=== PATIENT | female | born 1990 | race Hispanic/Latino ===

== ENCOUNTER 2019-03-31 14:30 | Emergency (ER) | payer OTHER ==
[2019-03-31 15:00] LABS: APPEARANCE,URINE Cloudy (CLEAR); BILIRUBIN,URINE Negative (NEGATIVE); COLOR,URINE Dark Yellow (YELLOW); GLUCOSE, URINE (UA) Negative (NEGATIVE); KETONES,URINE Negative (NEGATIVE); LEUKOCYTE ESTERASE ,URINE Negative (NEGATIVE); NITRATE,URINE Negative (NEGATIVE); OCCULT BLOOD,URINE Negative (NEGATIVE); PROTEIN,URINE Negative (NEGATIVE)
[2019-03-31 15:03] LABS: HCG,QUAL RESULT NEGATIVE (NEGATIVE)
[2019-03-31 15:18] LABS: BACTERIA,URINE Few /HPF (None Seen); RBC,URINE None Seen /HPF (0-1)
[2019-03-31 15:19] LABS: AMORPHOUS SEDIMENT,UR Few /LPF (None Seen); MUCUS,URINE Few LPF (None Seen)
== END 2019-03-31 15:04 | disposition home or self-care (01) ==
LOC: EDH 14:30
DX: F41.1 Generalized anxiety disorder (principal); Z88.0 Allergy status to penicillin; Z88.6 Allergy status to analgesic agent
CPT/HCPCS: 81001; 81025

== ENCOUNTER 2020-08-20 00:25 | Inpatient (IN) | payer OTHER ==
[~2020-08-20] VITALS: Ht 165.1 cm; Wt 85.3 kg
[2020-08-20 00:58] LABS: APPEARANCE,URINE Cloudy (CLEAR); BILIRUBIN,URINE Negative (NEGATIVE); COLOR,URINE Yellow (YELLOW); GLUCOSE, URINE (UA) Negative (NEGATIVE); KETONES,URINE Negative (NEGATIVE); LEUKOCYTE ESTERASE ,URINE Moderate (NEGATIVE); NITRATE,URINE Negative (NEGATIVE); OCCULT BLOOD,URINE Negative (NEGATIVE); PROTEIN,URINE Trace mg/dL (NEGATIVE)
[2020-08-20 01:05] LABS: AMPHET/METH SCREEN,URINE NEGATIVE (NEGATIVE); BARBITURATE SCREEN, URINE NEGATIVE (NEGATIVE); BENZODIAZEPINES SCREEN,URINE NEGATIVE (NEGATIVE); CANNABINOID SCREEN,URINE NEGATIVE (NEGATIVE); COCAINE SCREEN,URINE NEGATIVE (NEGATIVE); OPIATE SCREEN,URINE NEGATIVE (NEGATIVE); PHENCYCLIDINE SCREEN,URINE NEGATIVE (NEGATIVE)
[2020-08-20 01:06] LABS: BACTERIA,URINE Few /HPF (None Seen); MUCUS,URINE Many LPF (None Seen); RBC,URINE None Seen /HPF (0-1); SQUAMOUS EPITHELIAL CELL,UR Moderate /HPF (0-2)
[2020-08-20] MEDS ORDERED: LACTATED RINGERS 500 ML 500 ML IV PRN (01:45)
[2020-08-20] MEDS ORDERED: LACTATED RINGERS 1000ML 1,000 ML IV PRN (01:45)
[2020-08-20] MEDS ORDERED: PROMETHAZINE HCL 25 MG/ML 1ML AMPULE IM PRN (01:45)
[2020-08-20] MEDS ORDERED: EPHEDRINE SULFATE 50 MG/ML AMPULE IVP PRN (01:45)
[2020-08-20] MEDS ORDERED: MEPERIDINE-PF 50 MG/ML SYG IVP PRN (01:45)
[2020-08-20] MEDS ORDERED: NALOXONE HCL 0.4 MG/1 ML ML IV PRN (01:45)
[2020-08-20 02:03] LABS: HEMATOCRIT 27.7 % (36-48); MEAN CORPUSCULAR HEMOGLOBIN 31.2 pg (27.0-33.0); MEAN CORPUSCULAR HGB CONC 33.2 g/dL (32.0-36.0); MEAN CORPUSCULAR VOLUME 93.9 fL (79-99); RED BLOOD CELL COUNT(AUTO) 2.95 MIL/uL (4.00-5.50); RED CELL DISTRIBUTION WIDTH 14.3 % (11.0-15.5); WHITE BLOOD COUNT (AUTO) 8.6 K/uL (4.8-10.8)
[2020-08-20] MEDS: CLINDAMYCIN 600 MG/D5% WATER 50 ML IV SCH ×2 (02:56→08:45)
[2020-08-20] MEDS ORDERED: OXYTOCIN 10 USP UNITS/ML 20 UNIT in LACTATED RINGERS 1000ML 1,000 ML IV SCH (06:15)
[2020-08-20 06:27] VITALS: BP 125/71
[2020-08-20] MEDS ORDERED: OXYTOCIN-LR 20 UNITS/1000 ML 1,000 ML IV ONE ×2 (06:27→12:07)
[2020-08-20 07:52] LABS: RAPID PLASMA REAGIN NONREACTIVE (NONREACTIVE)
[2020-08-20] MEDS ORDERED: ACETAMINOPHEN-CODEINE 300/30MG TAB PO PRN (12:30)
[2020-08-20] MEDS ORDERED: BENZOCAINE/LANOLIN/ALOE VERA 60 ML AEROSOL TP PRN (12:30)
[2020-08-20] MEDS ORDERED: WITCH HAZEL 1 PAD TP PRN (12:30)
[2020-08-20] MEDS ORDERED: LANOLIN 30GM OINTMENT TP PRN (12:30)
[2020-08-20] MEDS ORDERED: OXYTOCIN 10 USP UNITS/ML ONE (12:47)
[2020-08-20] MEDS ORDERED: METHYLERGONOVINE MALEATE 0.2 MG/1 ML ML ONE (12:47)
[2020-08-20] MEDS: ACETAMINOPHEN 325 MG TAB PO PRN ×2 (13:21→20:56)
[2020-08-20 13:47] VITALS: BP 136/78
[2020-08-20] MEDS ORDERED: METHYLERGONOVINE MALEATE 0.2 MG/1 ML ML IM SCH (14:00)
[2020-08-20] MEDS ORDERED: OXYTOCIN 10 USP UNITS/ML IV SCH (14:00)
--- NOTE | 2020-08-20 15:00 | NUR ---
SW NOTE SW visited pt., family member at bedside. Pt. requested SW revisit tomorrow morning.
[2020-08-20 15:40] VITALS: BP 125/94
[2020-08-20 16:41] VITALS: BP 134/78
[2020-08-20 20:01] VITALS: BP 131/79
[2020-08-20] MEDS: DOCUSATE SODIUM 100 MG CAP PO SCH (20:53)
[2020-08-20 23:30] VITALS: BP 116/73
[2020-08-21 03:24] VITALS: BP 127/77
[2020-08-21] MEDS: ACETAMINOPHEN 325 MG TAB PO PRN ×2 (03:34→09:11)
[2020-08-21] MEDS ORDERED: MEASLES/MUMPS/RUBELLA VACCINE, LIVE 0.5 ML/VIAL SQ ONE (05:00)
[2020-08-21] MEDS ORDERED: DIPH,PERTUSS(ACELL),TET VAC/PF 0.5 ML VIAL IM ONE (05:00)
[2020-08-21 07:17] VITALS: BP 126/76
[2020-08-21 08:08] LABS: HEMATOCRIT 24.1 % (36-48); MEAN CORPUSCULAR HEMOGLOBIN 30.5 pg (27.0-33.0); MEAN CORPUSCULAR HGB CONC 31.5 g/dL (32.0-36.0); MEAN CORPUSCULAR VOLUME 96.8 fL (79-99); RED BLOOD CELL COUNT(AUTO) 2.49 MIL/uL (4.00-5.50); RED CELL DISTRIBUTION WIDTH 14.3 % (11.0-15.5); WHITE BLOOD COUNT (AUTO) 6.5 K/uL (4.8-10.8)
[2020-08-21 08:13] LABS: HEPATITIS Bs ANTIGEN SCREEN P Negative (Negative)
--- NOTE | 2020-08-21 09:00 | NUR ---
HARRY NOTE HARRY met with pt. who is awake, alert, oriented and cooperative. Pt. reports that this is her third /delivery; other children are 6y,3y and currently being cared for by her mother. Pt. is single, not employed outside the home and resides with her parents whom she reports as a strong support system. Pt. reports that she is no longer involved with FOB who is not the father to her two older children. Pt. admits to having used etoh and tobacco two months ago, but reports that she did not know that she was , also being the reason for lack of PNC. Pt. counseled on etoh, tobacco use especially around the children, pt. verbalized an understanding and reported that she has not done so. Pt. denied any use of illicit substances. Pt. reports a remote history of depression, anxiety and cutting at the age of 15y, stating she was treated and denies any episodes since. Pt. denies any current thoughts of harm to self or others, denies any history of suicide attempts. Pt. denies any history of domestic violence. Pt. denied any history of PPD with prior pregnancies and verbalized an awareness, knowledge and understanding of symptoms and when it is necessary to seek medical attention. Pt. will utilize [facility] for [employer] and herself; [facility] assisting this admission. Pt. reports a strong support system among her parents and family, stating that they are always willing to assist when needed. Carseat and essential baby items reportedly in place and all utilities connected in the home. Family will provide transportation home at d/c. Pt. provided with information on free counseling through [facility] if needed; pt. verbalized an understanding. Pt. verbalized no concerns or SS needs. Pt. and to be discharged home when medically cleared. Addendum: 08/21/20 at 1533 by RENEA NEWMAN Amended: Links added.
[2020-08-21] MEDS: DOCUSATE SODIUM 100 MG CAP PO SCH (09:09)
--- NOTE | 2020-08-21 09:26 | NUR ---
physician fariha - Dr. Hsu at bedside, no concerns or questions from pt. informed pt that she will be discharged today Addendum: 08/21/20 at 0937 by EDITH BISHOP RN Amended: Links added.
[2020-08-21 11:13] VITALS: BP 138/81
--- NOTE | 2020-08-21 11:20 | NUR ---
pt is discharged, verbal and written discharge instructions given, pls refer to [facility]. informed of the follow up appointment, prescription given. informed to call the doctor for further concerns. pt voiced understanding to all things discussed. baby will not be discharged. pt is waiting for her ride Addendum: 08/21/20 at 1451 by EDITH BISHOP RN Amended: Links added.
--- NOTE | 2020-08-21 14:00 | NUR ---
pt is dismissed in stable condition, brought to [email or web address] car via wheelchair by Tanesha- gopal Addendum: 08/21/20 at 1452 by EDITH BISHOP RN Amended: Links added.
== END 2020-08-21 14:00 | disposition home or self-care (01) | DRG 807 ==
LOC: EDH 00:25 → LDH 00:26 → OBSVTOIN 01:45 → WSH 13:45
PROVIDERS: ADMIT Obstetrics & Gynecology; ATTEND Obstetrics & Gynecology
PROC: 10E0XZZ Delivery of Products of Conception, External Approach (ICD-10-PCS; principal; 2020-08-20)
PROC: 0HQ9XZZ Repair Perineum Skin, External Approach (ICD-10-PCS; 2020-08-20)
PROC: 3E0R3BZ Introduction of Anesthetic Agent into Spinal Canal, Percutaneous Approach (ICD-10-PCS; 2020-08-20)
PROC: 00HU33Z Insertion of Infusion Device into Spinal Canal, Percutaneous Approach (ICD-10-PCS; 2020-08-20)
PROC: 10907ZC Drainage of Amniotic Fluid, Therapeutic from Products of Conception, Via Natural or Artificial Opening (ICD-10-PCS; 2020-08-20)
PROC: 3E0234Z Introduction of Serum, Toxoid and Vaccine into Muscle, Percutaneous Approach (ICD-10-PCS; 2020-08-21)
PROC: 3E0134Z Introduction of Serum, Toxoid and Vaccine into Subcutaneous Tissue, Percutaneous Approach (ICD-10-PCS; 2020-08-21)
DX: O70.0 First degree perineal laceration during delivery (principal); Z37.0 Single live birth; Z3A.36 36 weeks gestation of pregnancy; Z23 Encounter for immunization; Z88.0 Allergy status to penicillin; Z88.8 Allergy status to other drugs, medicaments and biological substances
CPT/HCPCS: 36415; 76805; 80305; 81001; 85027; 86592; 86701; 86850; 86900; 86901; 87088; 87340; 87390; 90707; 90715; A4314; A4351; G0378; J2210; J2590; J3490; J7120

== ENCOUNTER 2020-08-28 00:11 | Inpatient (IN) | payer OTHER ==
[~2020-08-28] VITALS: Ht 165.1 cm; Wt 82.5 kg
[2020-08-28] MEDS ORDERED: MORPHINE SULFATE 4 MG/1ML SYG ONE (01:31)
[2020-08-28] MEDS ORDERED: ONDANSETRON HCL 4 MG/2 ML VIAL ONE (01:31)
[2020-08-28] MEDS ORDERED: MORPHINE SULFATE 2 MG/ML 1ML SYG ONE (01:32)
[2020-08-28] MEDS ORDERED: BUTALB/ACETAMINOPHEN/CAFFEINE 1 EACH TABLET PO ONE (01:32)
[2020-08-28] MEDS ORDERED: SODIUM CHLORIDE 0.9% 1000ML 1,000 ML IV ONE (01:33)
[2020-08-28 01:57] LABS: BASOPHILS % (AUTO) 0.4 % (0.0-5.0); EOSINOPHILS % (AUTO) 2.8 % (0.0-8.0); HEMATOCRIT 25.8 % (36-48); LYMPHOCYTES % (AUTO) 22.1 % (21.0-51.0); MEAN CORPUSCULAR HEMOGLOBIN 31.4 pg (27.0-33.0); MEAN CORPUSCULAR HGB CONC 33.3 g/dL (32.0-36.0); MEAN CORPUSCULAR VOLUME 94.2 fL (79-99); PLATELET COUNT (AUTO) 285 K/uL (130-400); RED BLOOD CELL COUNT(AUTO) 2.74 MIL/uL (4.00-5.50); RED CELL DISTRIBUTION WIDTH 13.7 % (11.0-15.5); WHITE BLOOD COUNT (AUTO) 4.7 K/uL (4.8-10.8)
[2020-08-28 02:04] LABS: CREATININE 0.4 mg/dL (0.5-1.5); POTASSIUM 3.9 mmol/L (3.5-5.1)
[2020-08-28 02:09] LABS: ALBUMIN 2.8 g/dL (3.5-5.0); BILIRUBIN,TOTAL 0.1 mg/dL (0.2-1.0); TOTAL PROTEIN, SERUM 6.8 g/dL (6.0-8.3)
[2020-08-28] MEDS ORDERED: HYDROMORPHONE 1 MG/1 ML AMP ONE (05:05)
[2020-08-28] MEDS ORDERED: SODIUM CHLORIDE 0.9% 50 ML IV ONE (05:11)
--- NOTE | 2020-08-28 07:30 | NUR ---
DR ARISTIDES IRVING CAME TO SEE PT AT BEDSIDE ORDERED MRV R/O THROMBOSIS AND CT BRAIN W/O CONTRAST.
[2020-08-28 07:56] VITALS: BP 133/79
--- NOTE | 2020-08-28 08:00 | NUR ---
SARA RUIZ NP CAME TO SEE PT AT BEDSIDE
[2020-08-28] MEDS ORDERED: ACET325C6 PO (08:21)
[2020-08-28] MEDS ORDERED: ONDANSETRON HCL 4 MG/2 ML VIAL IVP PRN (08:45)
[2020-08-28] MEDS ORDERED: ACETAMINOPHEN-CODEINE 300/30MG TAB PO PRN (08:45)
[2020-08-28] MEDS ORDERED: ACETAMINOPHEN 325 MG TAB PO PRN ×2 (08:45)
[2020-08-28] MEDS: FAMOTIDINE 20MG TAB 20 MG TAB PO SCH ×2 (09:00→20:47)
[2020-08-28 11:33] VITALS: BP 135/82
[2020-08-28] MEDS: SODIUM CHLORIDE 0.9% 1000ML 1,000 ML IV SCH ×2 (12:50→17:49)
[2020-08-28 15:53] VITALS: BP 143/86
--- NOTE | 2020-08-28 15:57 | NUR ---
DCP CM met with pt discussed dc plans. Pt is independent prior to admission, lives at home with parents. Denies any equipments/services. Feels safe to go back home, still drives, parents able to assist with transportation and needs as necessary. DC plan to home once stable. CM to continue to follow up.
[2020-08-28] MEDS ORDERED: WARFARIN SODIUM 5 MG TAB PO SCH (17:00)
--- NOTE | 2020-08-28 17:40 | NUR ---
DR. DAILEY OB PER DR. DAILEY, HE WILL COME TO SEE PATIENT SOME TIME THIS EVENING.
[2020-08-28 19:43] VITALS: BP 149/90
[2020-08-28] MEDS: ENOXAPARIN SODIUM 80 MG/0.8 ML SQ SCH (20:51)
[2020-08-28 23:53] VITALS: BP 159/93
[2020-08-29 04:20] VITALS: BP 147/81
[2020-08-29 05:57] LABS: BASOPHILS % (AUTO) 0.5 % (0.0-5.0); EOSINOPHILS % (AUTO) 4.1 % (0.0-8.0); HEMATOCRIT 28.1 % (36-48); LYMPHOCYTES % (AUTO) 25.3 % (21.0-51.0); MEAN CORPUSCULAR HEMOGLOBIN 30.4 pg (27.0-33.0); MEAN CORPUSCULAR HGB CONC 32.4 g/dL (32.0-36.0); MONOCYTES % (AUTO) 8.9 % (3.0-13.0); NEUTROPHILS % (AUTO) 60.2 % (40.0-77.0); PLATELET COUNT (AUTO) 262 K/uL (130-400); RED BLOOD CELL COUNT(AUTO) 2.99 MIL/uL (4.00-5.50); RED CELL DISTRIBUTION WIDTH 13.2 % (11.0-15.5); WHITE BLOOD COUNT (AUTO) 5.9 K/uL (4.8-10.8)
[2020-08-29 06:10] LABS: CREATININE 0.6 mg/dL (0.5-1.5); POTASSIUM 4.1 mmol/L (3.5-5.1)
[2020-08-29 06:16] LABS: INR 0.91 (0.85-1.15); PARTIAL THROMBOPLASTIN TIME 28.2 SEC (26.3-35.5); PROTHROMBIN TIME 9.9 SEC (9.6-11.6)
[2020-08-29 08:00] VITALS: BP 147/84
[2020-08-29] MEDS ORDERED: IRON SUCROSE COMPLEX 100 MG in SODIUM CHLORIDE 0.9% 50 ML IV SCH (09:00)
[2020-08-29] MEDS: FAMOTIDINE 20MG TAB 20 MG TAB PO SCH (09:05)
[2020-08-29] MEDS: ENOXAPARIN SODIUM 80 MG/0.8 ML SQ SCH (09:06)
[2020-08-29] MEDS ORDERED: COMPOUND IV MISC 1 EACH IVSOLN MISC PRN (09:15)
[2020-08-29] MEDS: SODIUM CHLORIDE 0.9% 1000ML 1,000 ML IV SCH (10:14)
[2020-08-29 11:00] VITALS: BP 148/95
[2020-08-29 16:00] VITALS: BP 166/97
--- NOTE | 2020-08-29 18:47 | NUR ---
PATIENT DISCHARGE PATIENT DISCHARGE, IV DISCONTINUED, CATHLON INTACT, BLEEDING CONTROLLED, PATIENT TOLERATED WITHOUT INCIDENT. DISCUSSED WITH PATIENT THE NEED FOR HER TO CALL AND SCHEDULE FOLLOW UP APPOINTMENTS DUE TO OFFICES BEING CLOSED, PROVIDED PHONE NUMBERS TO CALL. DISCUSSED WITH PATIENT NEW MEDICATIONS, PATIENT STATED SHE UNDERSTOOD AND HAD NO ADDITIONAL QUESTIONS.
== END 2020-08-29 19:10 | disposition home or self-care (01) | DRG 776 ==
LOC: EDH 00:11 → OBSVTOIN 00:12 → EDHIP 00:12 → 3CH 07:41
PROVIDERS: ADMIT Family Medicine; ATTEND Family Medicine
DX: O87.0 Superficial thrombophlebitis in the puerperium (principal); O89.4 Spinal and epidural anesthesia-induced headache during the puerperium; Z20.828 Contact with and (suspected) exposure to other viral communicable diseases; O90.81 Anemia of the puerperium; D64.9 Anemia, unspecified; Z88.0 Allergy status to penicillin; Z88.8 Allergy status to other drugs, medicaments and biological substances; Z83.3 Family history of diabetes mellitus; Z82.49 Family history of ischemic heart disease and other diseases of the circulatory system
CPT/HCPCS: 36415; 70450; 70544; 70551; 80048; 80053; 85025; 85610; 85730; 87426; G0378; J1170; J1650; J1756; J2270; J2405; J7030; U0003

== ENCOUNTER 2020-09-07 15:57 | Inpatient (IN) | payer MEDICAID ==
[~2020-09-07] VITALS: Ht 165.1 cm; Wt 84.3 kg
[~2020-09-07 15:57] MED LIST: ACET325C6 PO
[2020-09-07 16:22] LABS: BASOPHILS % (AUTO) 0.9 % (0.0-5.0); EOSINOPHILS % (AUTO) 2.5 % (0.0-8.0); HEMATOCRIT 35.1 % (36-48); LYMPHOCYTES % (AUTO) 20.7 % (21.0-51.0); MEAN CORPUSCULAR HGB CONC 32.8 g/dL (32.0-36.0); MEAN CORPUSCULAR VOLUME 91.6 fL (79-99); MONOCYTES % (AUTO) 4.4 % (3.0-13.0); PLATELET COUNT (AUTO) 367 K/uL (130-400); RED BLOOD CELL COUNT(AUTO) 3.83 MIL/uL (4.00-5.50); RED CELL DISTRIBUTION WIDTH 13.4 % (11.0-15.5); WHITE BLOOD COUNT (AUTO) 8.9 K/uL (4.8-10.8)
[2020-09-07 16:37] LABS: INR 0.94 (0.85-1.15); PROTHROMBIN TIME 10.2 SEC (9.6-11.6)
[2020-09-07 16:41] LABS: ALBUMIN 3.8 g/dL (3.5-5.0); BILIRUBIN,TOTAL 0.4 mg/dL (0.2-1.0); CREATININE 0.8 mg/dL (0.5-1.5); POTASSIUM 4.1 mmol/L (3.5-5.1); TOTAL PROTEIN, SERUM 7.9 g/dL (6.0-8.3)
[2020-09-07 17:02] LABS: APPEARANCE,URINE Clear (CLEAR); BILIRUBIN,URINE Negative (NEGATIVE); COLOR,URINE Dark Yellow (YELLOW); GLUCOSE, URINE (UA) Negative (NEGATIVE); KETONES,URINE Negative (NEGATIVE); LEUKOCYTE ESTERASE ,URINE Negative (NEGATIVE); NITRATE,URINE Negative (NEGATIVE); OCCULT BLOOD,URINE Negative (NEGATIVE); PROTEIN,URINE Trace mg/dL (NEGATIVE); UROBILINOGEN,URINE 0.2 mg/dL (0.2-1.0)
[2020-09-07 17:04] LABS: HCG,QUAL RESULT NEGATIVE (NEGATIVE)
[2020-09-07 17:17] LABS: BACTERIA,URINE Few /HPF (None Seen); MUCUS,URINE Moderate LPF (None Seen); SQUAMOUS EPITHELIAL CELL,UR Few /HPF (0-2)
[2020-09-07 17:50] LABS: HEMATOCRIT 30.9 % (36-48)
[2020-09-07] MEDS ORDERED: ACETAMINOPHEN 325 MG TAB PO PRN (19:30)
[2020-09-07] MEDS: SODIUM CHLORIDE 0.9% 1000ML 1,000 ML IV SCH (19:30)
[2020-09-07] MEDS ORDERED: ONDANSETRON HCL 4 MG/2 ML VIAL IV PRN (19:30)
[2020-09-07] MEDS ORDERED: LACTULOSE 20 GM/30 ML UDCUP PO PRN (19:30)
[2020-09-07] MEDS: FAMOTIDINE 20MG TAB 20 MG TAB PO SCH (21:00)
[2020-09-07] MEDS ORDERED: FAMOTIDINE 20MG TAB 20 MG TAB ONE (22:42)
[2020-09-07 23:38] VITALS: BP 162/78
[2020-09-07] MEDS: ACETAMINOPHEN 325 MG TAB PO PRN (23:39)
[2020-09-08] VITALS (7 sets, daily range): BP systolic 138–169; BP diastolic 76–96
[2020-09-08] MEDS ORDERED: SODIUM CHLORIDE 0.9% 250 ML IV ONE (01:21)
[2020-09-08 01:24] LABS: HEMATOCRIT 33.9 % (36-48)
[2020-09-08] MEDS ORDERED: DiphenhydrAMINE HCL 50 MG/ML VIAL IV SCH (02:45)
[2020-09-08] MEDS ORDERED: DiphenhydrAMINE HCL 50 MG/ML VIAL ONE (02:46)
[2020-09-08] MEDS: SODIUM CHLORIDE 0.9% 1000ML 1,000 ML IV SCH ×2 (02:47→14:21)
[2020-09-08 05:52] LABS: HEMATOCRIT 32.8 % (36-48)
[2020-09-08] MEDS: FAMOTIDINE 20MG TAB 20 MG TAB PO SCH ×2 (08:39→21:59)
[2020-09-08] MEDS ORDERED: ONDANSETRON HCL 4 MG/2 ML VIAL IVP PRN (10:15)
[2020-09-08 11:09] LABS: HEMATOCRIT 33.3 % (36-48)
[2020-09-08] MEDS: ACETAMINOPHEN 325 MG TAB PO PRN (17:11)
[2020-09-08 17:13] LABS: HEMATOCRIT 34.6 % (36-48)
[2020-09-08 23:03] LABS: HEMATOCRIT 34.3 % (36-48)
[2020-09-09] MEDS: SODIUM CHLORIDE 0.9% 1000ML 1,000 ML IV SCH ×3 (00:21→21:30)
[2020-09-09 03:50] VITALS: BP 156/89
[2020-09-09 08:02] VITALS: BP 164/89
[2020-09-09] MEDS: FAMOTIDINE 20MG TAB 20 MG TAB PO SCH ×2 (10:41→21:29)
[2020-09-09] MEDS: ACETAMINOPHEN 325 MG TAB PO PRN (10:41)
[2020-09-09 11:41] VITALS: BP 136/83
[2020-09-09 11:58] LABS: BASOPHILS % (AUTO) 0.7 % (0.0-5.0); EOSINOPHILS % (AUTO) 4.6 % (0.0-8.0); HEMATOCRIT 33.7 % (36-48); LYMPHOCYTES % (AUTO) 26.4 % (21.0-51.0); MEAN CORPUSCULAR HEMOGLOBIN 30.2 pg (27.0-33.0); MEAN CORPUSCULAR HGB CONC 32.9 g/dL (32.0-36.0); MEAN CORPUSCULAR VOLUME 91.8 fL (79-99); MONOCYTES % (AUTO) 6.6 % (3.0-13.0); NEUTROPHILS % (AUTO) 61.3 % (40.0-77.0); PLATELET COUNT (AUTO) 238 K/uL (130-400); RED BLOOD CELL COUNT(AUTO) 3.67 MIL/uL (4.00-5.50); RED CELL DISTRIBUTION WIDTH 14.1 % (11.0-15.5); WHITE BLOOD COUNT (AUTO) 5.6 K/uL (4.8-10.8)
[2020-09-09 13:03] LABS: INR 0.92 (0.85-1.15)
[2020-09-09 16:00] VITALS: BP 142/98
[2020-09-09] MEDS ORDERED: HEPARIN SODIUM 10000 UNIT/ML 1ML VIAL IJ ONE (16:30)
[2020-09-09 20:44] VITALS: BP 142/91
[2020-09-09 22:04] LABS: INR 0.93 (0.85-1.15); PARTIAL THROMBOPLASTIN TIME 72.7 SEC (26.3-35.5); PROTHROMBIN TIME 10.1 SEC (9.6-11.6)
[2020-09-10] VITALS (8 sets, daily range): BP systolic 125–179; BP diastolic 86–104
[2020-09-10] MEDS ORDERED: ENALAPRILAT DIHYDRATE 1.25MG/ML 1ML VIAL IV SCH (01:15)
[2020-09-10] MEDS ORDERED: HYDROCODONE/ACETAMINOPHEN 5/325 MG TAB PO ONE (02:00)
[2020-09-10] MEDS ORDERED: HYDROCODONE/ACETAMINOPHEN 5/325 MG TAB ONE (02:17)
[2020-09-10 05:23] LABS: BASOPHILS % (AUTO) 0.6 % (0.0-5.0); EOSINOPHILS % (AUTO) 4.7 % (0.0-8.0); HEMATOCRIT 34.9 % (36-48); LYMPHOCYTES % (AUTO) 37.9 % (21.0-51.0); MEAN CORPUSCULAR HEMOGLOBIN 29.8 pg (27.0-33.0); MEAN CORPUSCULAR HGB CONC 32.7 g/dL (32.0-36.0); MEAN CORPUSCULAR VOLUME 91.4 fL (79-99); PLATELET COUNT (AUTO) 242 K/uL (130-400); RED BLOOD CELL COUNT(AUTO) 3.82 MIL/uL (4.00-5.50); RED CELL DISTRIBUTION WIDTH 13.9 % (11.0-15.5); WHITE BLOOD COUNT (AUTO) 6.4 K/uL (4.8-10.8)
[2020-09-10 05:44] LABS: INR 0.94 (0.85-1.15); PARTIAL THROMBOPLASTIN TIME 56.1 SEC (26.3-35.5); PROTHROMBIN TIME 10.2 SEC (9.6-11.6)
[2020-09-10] MEDS: SODIUM CHLORIDE 0.9% 1000ML 1,000 ML IV SCH ×2 (07:30→17:54)
[2020-09-10] MEDS: FAMOTIDINE 20MG TAB 20 MG TAB PO SCH ×2 (08:50→22:06)
[2020-09-10] MEDS: HEPARIN 25000 UNITS/250 ML D5W 250 ML IV SCH (10:03)
[2020-09-10 10:28] LABS: HEMATOCRIT 36.1 % (36-48)
[2020-09-10 12:05] LABS: INR 0.93 (0.85-1.15); PARTIAL THROMBOPLASTIN TIME 47.8 SEC (26.3-35.5); PROTHROMBIN TIME 10.1 SEC (9.6-11.6)
[2020-09-10 14:36] LABS: HEMATOCRIT 35.5 % (36-48)
[2020-09-10 21:04] LABS: HEMATOCRIT 37.7 % (36-48)
[2020-09-10] MEDS ORDERED: ALPRAZOLAM 0.5 MG TABLET PO ONE (22:30)
[2020-09-11] MEDS ORDERED: ALPRAZOLAM 0.5 MG TABLET ONE (01:00)
[2020-09-11] MEDS: SODIUM CHLORIDE 0.9% 1000ML 1,000 ML IV SCH (03:30)
[2020-09-11 03:45] LABS: BASOPHILS % (AUTO) 0.5 % (0.0-5.0); EOSINOPHILS % (AUTO) 3.8 % (0.0-8.0); LYMPHOCYTES % (AUTO) 34.2 % (21.0-51.0); MEAN CORPUSCULAR HEMOGLOBIN 30.1 pg (27.0-33.0); MEAN CORPUSCULAR HGB CONC 32.9 g/dL (32.0-36.0); MEAN CORPUSCULAR VOLUME 91.6 fL (79-99); MONOCYTES % (AUTO) 7.2 % (3.0-13.0); NEUTROPHILS % (AUTO) 53.8 % (40.0-77.0); PLATELET COUNT (AUTO) 248 K/uL (130-400); RED BLOOD CELL COUNT(AUTO) 3.82 MIL/uL (4.00-5.50); RED CELL DISTRIBUTION WIDTH 13.8 % (11.0-15.5); WHITE BLOOD COUNT (AUTO) 6.5 K/uL (4.8-10.8)
[2020-09-11 03:58] LABS: CREATININE 0.6 mg/dL (0.5-1.5); POTASSIUM 3.4 mmol/L (3.5-5.1)
[2020-09-11] MEDS: HEPARIN 25000 UNITS/250 ML D5W 250 ML IV SCH (04:44)
[2020-09-11 04:48] VITALS: BP 123/81
[2020-09-11 08:04] VITALS: BP 135/83
[2020-09-11] MEDS: FAMOTIDINE 20MG TAB 20 MG TAB PO SCH ×2 (09:38→20:21)
[2020-09-11 11:08] LABS: HEMATOCRIT 35.7 % (36-48)
[2020-09-11 11:32] VITALS: BP 147/90
[2020-09-11 12:05] LABS: INR 0.95 (0.85-1.15); PARTIAL THROMBOPLASTIN TIME 67.2 SEC (26.3-35.5); PROTHROMBIN TIME 10.3 SEC (9.6-11.6)
[2020-09-11 15:35] VITALS: BP 131/81
[2020-09-11] MEDS: ACETAMINOPHEN 325 MG TAB PO PRN (16:50)
[2020-09-11] MEDS: RIVAROXABAN 15 MG TABLET PO SCH (20:22)
[2020-09-11 20:51] VITALS: BP 147/94
[2020-09-11] MEDS ORDERED: DIPHENHYDRAMINE HCL 25 MG CAPSULE PO SCH (23:00)
[2020-09-11] MEDS ORDERED: DIPHENHYDRAMINE HCL 25 MG CAPSULE ONE (23:16)
[2020-09-12] VITALS: BP 140/95
[2020-09-12 04:00] VITALS: BP 116/71
[2020-09-12 06:59] LABS: ALBUMIN 3.1 g/dL (3.5-5.0); BILIRUBIN,TOTAL 0.2 mg/dL (0.2-1.0); CREATININE 0.6 mg/dL (0.5-1.5); POTASSIUM 3.5 mmol/L (3.5-5.1); TOTAL PROTEIN, SERUM 6.5 g/dL (6.0-8.3)
[2020-09-12 07:30] VITALS: BP 143/88
[2020-09-12 08:11] LABS: HEMATOCRIT 34.4 % (36-48); MEAN CORPUSCULAR HEMOGLOBIN 30.5 pg (27.0-33.0); MEAN CORPUSCULAR HGB CONC 33.1 g/dL (32.0-36.0); RED BLOOD CELL COUNT(AUTO) 3.74 MIL/uL (4.00-5.50); RED CELL DISTRIBUTION WIDTH 13.7 % (11.0-15.5); WHITE BLOOD COUNT (AUTO) 6.1 K/uL (4.8-10.8)
[2020-09-12] MEDS: FAMOTIDINE 20MG TAB 20 MG TAB PO SCH (08:12)
[2020-09-12] MEDS: RIVAROXABAN 15 MG TABLET PO SCH (08:58)
[2020-09-12 11:00] VITALS: BP 113/63
== END 2020-09-12 16:30 | disposition home or self-care (01) | DRG 560 ==
LOC: EDH 15:57 → EDHIP 15:58 → 3DH 22:12
PROVIDERS: ADMIT Internal Medicine; ATTEND Internal Medicine
PROC: 30233N1 Transfusion of Nonautologous Red Blood Cells into Peripheral Vein, Percutaneous Approach (ICD-10-PCS; 2020-09-07)
PROC: 30233K1 Transfusion of Nonautologous Frozen Plasma into Peripheral Vein, Percutaneous Approach (ICD-10-PCS; principal; 2020-09-08)
DX: O72.1 Other immediate postpartum hemorrhage (principal); N93.9 Abnormal uterine and vaginal bleeding, unspecified; O99.335 Smoking (tobacco) complicating the puerperium; O99.03 Anemia complicating the puerperium; D62 Acute posthemorrhagic anemia; F17.200 Nicotine dependence, unspecified, uncomplicated; R93.89 Abnormal findings on diagnostic imaging of other specified body structures; Z79.01 Long term (current) use of anticoagulants; Z86.718 Personal history of other venous thrombosis and embolism; Z88.0 Allergy status to penicillin; Z88.8 Allergy status to other drugs, medicaments and biological substances; Z83.3 Family history of diabetes mellitus; Z82.49 Family history of ischemic heart disease and other diseases of the circulatory system
CPT/HCPCS: 36415; 36430; 70450; 70544; 76817; 76856; 80048; 80053; 81001; 81025; 84702; 85014; 85018; 85025; 85027; 85610; 85730; 86850; 86900; 86901; 86923; 86927; G0378; J1200; J1644; J3490; J7030; J7050; P9016; P9017; Q0163

== ENCOUNTER 2023-04-29 11:50 | Emergency (ER) | payer BC, MEDICAID ==
[~2023-04-29] VITALS: Ht 165.1 cm; Wt 69.4 kg
[2023-04-29] MEDS ORDERED: ONDANSETRON ODT 4MG TAB SL ONE (12:00)
[2023-04-29 12:27] LABS: SARS-CoV-2, RNA, NAAT NEGATIVE SARS CoV-2 (NEGATIVE)
[2023-04-29 12:31] LABS: APPEARANCE,URINE CLOUDY (CLEAR); BILIRUBIN,URINE NEGATIVE (NEGATIVE); COLOR,URINE LIGHT-ORANGE (YELLOW); GLUCOSE, URINE (UA) NEGATIVE (NEGATIVE); KETONES,URINE NEGATIVE (NEGATIVE); LEUKOCYTE ESTERASE ,URINE 500 Leu/uL (NEGATIVE); NITRATE,URINE 1+ (NEGATIVE); OCCULT BLOOD,URINE SMALL (NEGATIVE); PH,URINE 6.5 (5.0-8.0); PROTEIN,URINE 50 mg/dL (NEGATIVE); UROBILINOGEN,URINE 0.2 mg/dL (0.2-1.0)
[2023-04-29 12:31] LABS: INFLUENZA TYPE A Negative For Type A (NEGATIVE); INFLUENZA TYPE B Negative For Type B (NEGATIVE)
[2023-04-29 12:34] LABS: HCG,QUALITATIVE URINE NEGATIVE (NEGATIVE)
[2023-04-29 12:35] LABS: ADD UA MICROSCOPIC YES
[2023-04-29 12:38] LABS: BACTERIA,URINE FEW /HPF (None Seen); SQUAMOUS EPITHELIAL CELL,UR MOD /HPF (0-2); WBC CLUMP MANY /HPF (0-1); WBC,URINE TNTC /HPF (0-1)
[2023-04-29] MEDS ORDERED: ONDA4TAB10 PO (13:28)
[2023-04-29] MEDS ORDERED: NITR100C PO (13:28)
[2023-04-29] MEDS ORDERED: PHEN-847 PO (13:28)
[2023-04-29] MEDS ORDERED: PHENAZOPYRIDINE HCL 200 MG TABLET PO ONE (13:30)
[2023-04-29] MEDS ORDERED: CEFTRIAXONE 1G VIAL IM ONE (13:30)
[2023-04-29 14:14] VITALS: BP 124/78; PULSE 90; RESP 20; O2SAT 100
[2023-04-29] MEDS ORDERED: LIDOCAINE HCL 1% 20 ML VIAL ONE (14:16)
[2023-04-29] MEDS ORDERED: NITROFURANTOIN MONOHYD/M-CRYST 100 MG CAPSULE PO ONE ×2 (15:00)
== END 2023-04-29 14:44 | disposition home or self-care (01) ==
LOC: EDH 11:50
DX: N39.0 Urinary tract infection, site not specified (principal); I10 Essential (primary) hypertension; F17.200 Nicotine dependence, unspecified, uncomplicated; Z88.0 Allergy status to penicillin; Z88.6 Allergy status to analgesic agent; Z20.822 Contact with and (suspected) exposure to COVID-19
CPT/HCPCS: 99284; 87635; 87077; 87088; 87186; 87804 ×2; 81001; 81025; C9803; J0696